=== PATIENT | male | born 1980 | race Caucasian/White ===

== ENCOUNTER 2022-06-17 07:12 | Day surgery (SDC) | payer OTHER ==
--- NOTE | 2022-06-16 14:57 | RAD REPORT ---
EXAM DESCRIPTION: RAD - Chest Single View - 06/16/2022 2:48 pm CLINICAL HISTORY: PRE-OP Chest pain. COMPARISON: No comparisons FINDINGS: Portable technique limits examination quality. The lungs are grossly clear. The heart is normal in size. No displaced fractures. IMPRESSION: No acute intrathoracic process suspected.
[2022-06-16 15:43] LABS: Lymphocytes % 33.9 % (15.3-44.8); MCV 85.2 fL (80-100); MPV 7.1 fL (7.6-11.3); RBC Red Blood Cell Count 4.69 M/uL (4.33-5.43)
[2022-06-16 15:56] LABS: Potassium 3.9 mmol/L (3.5-5.1)
[2022-06-17] MEDS ORDERED: CEFAZOLIN SODIUM 1 GM/VIAL ONE (07:32)
[2022-06-17] MEDS ORDERED: Ringers Lactate 1,000 ML IV ONE (07:33)
[2022-06-17] MEDS ORDERED: propofoL 200 MG/20 ML VIAL IV ONE (08:00)
[2022-06-17] MEDS ORDERED: FENTANYL CITR 100 MCG/2 ML ONE (08:00)
[2022-06-17] MEDS ORDERED: ONDANSETRON 4 MG/2 ML VIAL ONE (08:00)
[2022-06-17] MEDS ORDERED: MIDAZOLAM HCL 2 MG/2 ML INJ ONE (08:00)
[2022-06-17] MEDS ORDERED: ROCURONIUM 50 MG/5 ML VIAL IV ONE (08:00)
[2022-06-17] MEDS ORDERED: LIDOCAINE 2% MPF 5 ML VIAL ONE (08:02)
[2022-06-17] MEDS ORDERED: Mastisol Adhesive Liq ONE (08:34)
[2022-06-17] MEDS ORDERED: dexAMETHasone 4 MG/ML VIAL ONE (09:09)
[2022-06-17] MEDS ORDERED: GLYCOPYRROLATE 0.2 MG/ML SYR ONE (09:37)
[2022-06-17] MEDS ORDERED: NEOSTIGMINE 1 MG/ML -10 ML VIAL ONE (09:38)
--- NOTE | 2022-06-17 09:50 | P.OP ---
Date of Service: 06/17/22 Preop diagnosis: Right inguinal hernia Postop diagnosis: Same Procedure performed: Repair right inguinal hernia Surgeon: Eric Hodges MD Sewing Demonstrator: BRITTANI Nava Estimated blood loss: Minimal Specimen: None Findings: Direct right inguinal hernia Anesthesia: General Complications: None Drains: None Fluids and blood products: Nonapplicable Disposition: Recovery room Operative note: Patient brought to the OR and placed in supine position. General anesthesia begun. Patient prepped and draped in the usual sterile fash ion. Marcaine 0.5% infiltrated locally in the right groin region in a field block fashion. 15 blade used to make a 4 cm incision between the right pubic tubercle and the anterior iliac superior spine. Subcutaneous tissue divided. Linette's fascia identified and divided. Bleeding controlled with cautery. Aponeurosis of the external abdominal oblique muscle identified. Aponeurosis mobilized inferiorly to expose the shelving edge. Aponeurosis opened through the external ring. Ilioinguinal nerve and cord structures identified and retracted out of the field of dissection. Cord skeletonized. No evidence of indirect sac identified. A moderate-sized direct inguinal hernia present. Preperitoneal fat reduced back into the peritoneal cavity. The defect present was closed with 2-0 running Prolene suture. Marlex mesh plug placed and secured with VersaTack stapler. Onlay mesh placed in the inguinal floor. The mesh secured medially to the pubic tubercle, inferiorly to the shelving edge, superior to the conjoined tendon and laterally to each other. Cord structures and ilioinguinal nerve placed back in anatomic location. 2-0 nylon used to close the aponeurosis. 3-0 chromic used to close Linette's fascia. 0 chromic also used to close skin. Sterile dressing applied. Patient awakened and taken to recovery room in good general condition. CC: Dr. Morrison' office
[2022-06-17] MEDS ORDERED: HYDROCODONE/APAP 7.5/325 MG TAB PO PRN (09:52)
[2022-06-17] MEDS: HYDROMORPHONE HCL 1 MG/ML INJ ONE ×2 (09:57→10:03)
[2022-06-17] MEDS ORDERED: HYDROMORPHONE HCL 1 MG/ML INJ ONE (10:17)
[2022-06-17] MEDS ORDERED: HYDROCODONE/APAP 7.5/325 MG TAB ONE (11:14)
--- NOTE | 2022-06-17 13:00 | EKG ---
Test Date: 2022-06-16 Test Time: 14:46:11 Clerical Methods Analyst: OMAR MEASUREMENT RESULTS: Intervals: Rate: 67 FL: 136 QRSD: 106 QT: 378 QTc: 399 Russell: P: 72 FL: 136 QRS: 73 T: 63 INTERPRETIVE STATEMENTS: Normal sinus rhythm with sinus arrhythmia Minimal voltage criteria for LVH, may be normal variant Borderline ECG No previous ECG available for comparison Electronically Signed On 06-17-22 12:58:31 SITE ACQUISITION MANAGER by Nithin Pinedo
[2022-06-17 15:00] VITALS: BP 127/74; TEMP 97.2; O2SAT 99
== END 2022-06-17 12:05 | disposition home or self-care (01) ==
LOC: OR 07:12
PROVIDERS: ATTEND Surgery
PROC: 0YU50JZ Supplement Right Inguinal Region with Synthetic Substitute, Open Approach (ICD-10-PCS; principal; 2022-06-17 08:45)
DX: K40.90 Unilateral inguinal hernia, without obstruction or gangrene, not specified as recurrent (principal)
CPT/HCPCS: 93005; 85025; 80048; 36415; 71045; 49505; J2704; J1100; J2710; J2001; J2250; J3010; J1170 ×2; J7120; J2405; J0690